=== PATIENT | male | born 1960 | race Caucasian/White ===

== ENCOUNTER → 2018-04-18 | Outpatient (CLI) | payer BC ==
[2018-04-18 13:44] LABS: HCT 47.5 % (39.0-53.0); HGB 16.4 gm/dL (13.0-17.5); MCH 30.6 pg (25.0-35.0); MCHC 34.5 g/dL (31.0-37.0); MCV 88.7 fL (80.0-100.0); Mean Platelet Volume 6.7; Platelet Count 155 k/uL (150-450); RBC 5.35 m/uL (4.30-5.90); RDW 13.3 % (11.5-15.5); WBC 6.4 k/uL (3.8-10.6)
[2018-04-18 13:55] LABS: Anion Gap 10 mmol/L; Blood Urea Nitrogen 11 mg/dL (9-20); Carbon Dioxide 28 mmol/L (22-30); Chloride 100 mmol/L (98-107); Potassium 3.8 mmol/L (3.5-5.1); Sodium 138 mmol/L (137-145)
== END ==
LOC: LABPAT 12:54
PROVIDERS: ATTEND Internal Medicine Interventional Cardiology
DX: Z01.812 Encounter for preprocedural laboratory examination (principal); I10 Essential (primary) hypertension; R07.9 Chest pain, unspecified
CPT/HCPCS: 36415; 80051; 82565; 84520; 85027

== ENCOUNTER 2018-04-19 12:07 | Day surgery (SDC) | payer BC ==
[2018-04-18 12:58] VITALS: BMI 33.0
[~2018-04-19 12:07] MED LIST: ALPRAZolam 0.25 MG TAB PO PRN; ALPRAZolam 0.5 MG TAB PO PRN; ASPIRIN 325 MG TAB PO STA; ATORVASTATIN 80 MG TAB PO STA; NITROGLYCERIN SL TABS 0.4 MG TAB SUBLINGUAL PRN; SODIUM CHLORIDE 0.9% 1,000 ML in EMPTY BAG 1 BAG IV ONE
[2018-04-19] MEDS ORDERED: diphenhydrAMINE 50 MG/ML 1 ML VIAL IVP STA (13:30)
[2018-04-19] MEDS: fentaNYL (PF) 50 MCG/ML 2 ML AMP IV ONE ×2 (13:44→14:47)
[2018-04-19] MEDS ORDERED: MIDAZOLAM 2 MG/2 ML VIAL IV ONE (13:44)
[2018-04-19] MEDS ORDERED: diphenhydrAMINE 50 MG/ML 1 ML VIAL IVP ONE (13:45)
[2018-04-19] MEDS ORDERED: methylPREDNISolone SOD SUCCI 125 MG/2 ML VIAL IV ONE (13:45)
[2018-04-19] MEDS ORDERED: LIDOCAINE 1% INJ 10MG/ML (20 ML MDV) SQ ONE (14:15)
[2018-04-19] MEDS ORDERED: HEPARIN SODIUM 1,000 UN/ML (10ML VL) IV ONE (14:16)
[2018-04-19] MEDS ORDERED: VERAPAMIL SYRINGE (5 MG/10 ML) INTRAARTER ONE (14:16)
[2018-04-19] MEDS ORDERED: BIVALIRUDIN 250 MG in SODIUM CHLORIDE 0.9% 50 ML IV ONE ×2 (14:28→15:23)
[2018-04-19] MEDS ORDERED: BIVALIRUDIN BOLUS 250 MG/50 ML IV ONE (14:28)
[2018-04-19] MEDS ORDERED: IOPAMIDOL-370 125ML BTL INJ ONE (14:51)
[2018-04-19] MEDS ORDERED: TICAGRELOR 90 MG TAB PO ONE (14:56)
[2018-04-19] MEDS ORDERED: IOPAMIDOL-370 100ML BTL INJ ONE ×2 (16:16)
[2018-04-19] MEDS ORDERED: ZOLPIDEM 5 MG TAB PO PRN (16:39)
[2018-04-19] MEDS ORDERED: RX INFO: IV CONTRAST WAS GIVEN 1 EACH MISC MISCELLANE PRN (16:39)
[2018-04-19] MEDS ORDERED: NITROGLYCERIN SL TABS 0.4 MG TAB SUBLINGUAL PRN (16:39)
[2018-04-19] MEDS ORDERED: ATROPINE SULFATE 0.1 MG/ML 10ML SYRINGE IV PRN (16:39)
[2018-04-19] MEDS ORDERED: MAG HYDROX/AL HYDROX/SIMETH 30 ML CUP PO PRN (16:39)
[2018-04-19] MEDS ORDERED: SODIUM CHLORIDE 0.9% 1,000 ML IV SCH (16:45)
[2018-04-19] MEDS ORDERED: LEVOTHYROXINE 88 MCG TAB PO SCH (21:00)
--- NOTE | 2018-04-19 21:02 | LTR ---
DATE OF SERVICE: April 19, 2018. Dear Dr. Scott: Mr. Arnaldo Pineda underwent heart catheterization and was found to have critical disease involving the mid LAD. As well as he was found to have severe disease involving the proximal LAD. He underwent successful stenting of both the mid and distal LAD using drug-eluting stent with good angiographic results and without any complication. I want to thank you for allowing us to participate in his care and please do not hesitate to call if you have any question or concern. Sincerely, MMDIONIL / IJN: [id number] /
--- NOTE | 2018-04-19 21:23 | CC ---
CARDIAC CATHETERIZATION REPORT DATE OF SERVICE: April 19, 2018 PERFORMING PHYSICIAN: Deion Colindres MD, marketing director assisted living. PROCEDURE PERFORMED: 1. Selective right and left coronary angiogram. 2. Left heart catheterization. 3. Successful stenting of the mid LAD using 2.0 x 26 mm Loomis drug-eluting stent which was post dilated using 2.5 mm balloon with an excellent angiographic results and reduction of stenosis from 99% to 0%. 4. Successful stenting of the proximal left anterior descending artery using 2.75 x 23 mm Xience drug-eluting stent with an excellent angiographic results and reduction of stenosis from 70% to 0%. INDICATIONS: This is a pleasant 57-year-old gentleman with hypertension and dyslipidemia who I saw in the office yesterday complaining of chest discomfort concerning for angina. He was having very mild chest discomfort sometimes with the resting. I was concerned about severe underlying coronary artery disease and because of that, I recommended proceeding with a heart catheterization. APPROACH: Right radial artery. COMPLICATION: None. LEVEL OF SEDATION: Moderate with sedation length of 2 hours and 8 minutes. PROCEDURE DESCRIPTION: After obtaining an informed consent, the patient was brought to the cardiac wastewater analyst lab analyst. The right radial artery was cannulated using micropuncture technique and a micropuncture wire passed easily. Then I placed a 6-Bengali sheath 11 cm in the right radial artery. After that, I gave the patient 2 mg of verapamil IA and 8000 units of heparin IV. Subsequently, I did selective right and left coronary angiogram using JR4 and JL 3.5 catheters. Left heart catheterization was performed using 6-Bengali pigtail catheter. After that I did intervene on the LAD. Please see a separate paragraph for that. SELECTIVE CORONARY ANGIOGRAM: 1. The right coronary artery is a large caliber vessel. It is a dominant vessel. The RCA has mild disease only. Distally bifurcates into PDA and PLV branches and they have mild disease only. 2. The left main is angiographically normal. It bifurcates into left circumflex and left anterior descending artery. 3. The left circumflex is a large caliber vessel. It is a nondominant vessel. The proximal circ is normal and gives rise into a large OM branch which appeared to be angiographically normal. Left circumflex after that continues as a small-caliber vessel in the AV groove. 4. The LAD: The proximal LAD in the beginning appeared to have intermediate disease only in the range of 50-60 percent. Then I did realize during the procedure that the LAD tighter than that. The mid LAD is subtotally occluded with a sluggish flow and sometimes dye staining with an area of disease appeared to be in the range of 99.9%. This is by the bifurcation of the 1st large diagonal branch which appeared to be involved in the lesion. The LAD distally appeared to be angiographically normal. HEMODYNAMICS: The left ventricular end-diastolic pressure was about 12 mmHg and no gradient was identified across aortic valve. PCI OF THE LAD: Anticoagulation was initiated using Angiomax. Subsequently I did engage the left main using JL3.5 guiding catheter. After that, I did wire the LAD using a Whisper wire. The wire was positioned in the distal LAD. I did balloon angioplasty of the LAD using 2.5 x 15 mm balloon. Subsequently I tried to advance 2.75 x 23 mm Xience drug-eluting stent to the LAD but I struggled advancing the stent in the proximal LAD. I tried to advance Brendan 2.0 x 26 mm stent and I was unable. I did use a shorter stent of Brendan and I was unable as well. At that point, I tried using a GuideLiner and in spite of that I was able to get the stent to the mid LAD. At that point, I realized that the LAD in the proximal portion tighter than what it looks like and probably about 70% disease. I decided to balloon that LAD in the mid and the proximal portion, so initially I used 2.5 x 15 mm NC balloon and subsequently 3.0 X 15 mm NC balloon. The 2nd balloon which was 3.0 X 15 used to wire the LAD in the proximal as well as midportion. I attempted using the GuideLiner again to advance the stent and I was unable to advance the Loomis stent to the mid LAD. After that, I decided to use a neil wire with another whisper wire. So I did wire the LAD using another whisper wire and the wire was positioned in the very distal end of the LAD. After that I was able to get the Brendan 2.0 x 26 mm to the mid LAD where the stent was positioned under fluoroscopy guidance and deployed under 16 atmospheres for 20 seconds. After that, for the proximal LAD, I did stent using 2.75 x 23 mm Xience drug-eluting stent. The second stent was again positioned under fluoroscopy guidance and deployed under 12 atmospheres for 20 seconds. After that, I did post dilate the stent in the mid LAD using 2.5 mm NC balloon which was inflated twice in the mid LAD inside the stent. Then at the junction between the stent in the mid and proximal portion. The balloon was inflated under 18 atmospheres for 20 seconds. Please note that after I did wire the LAD and ballooned the LAD in the beginning, I did wire the diagonal and also I did balloon angioplasty of the diagonal as well. The final angiogram showed good angiographic results with EZEQUIEL -3 flow in the LAD and maybe EZEQUIEL 2 flow in the diagonal branch of the LAD. Finally, the procedure was completed. POSTPROCEDURE MANAGEMENT: 1. Dual anti-platelet therapy. 2. Risk factors modifications. 3. Follow up with the patient. ALIDA / JAMEL: [id number] /
[2018-04-19 21:56] VITALS: RESP 18
[2018-04-20 03:38] VITALS: BP 97/53; PULSE 69; TEMP 97.5
[2018-04-20 06:51] LABS: Basophils % (A) 0 %; Eosinophils % (A) 0 %; HCT 37.9 % (39.0-53.0); Lymphocytes # (A) 0.5 k/uL (1.0-4.8); Lymphocytes % (A) 6 %; MCH 30.5 pg (25.0-35.0); MCHC 34.5 g/dL (31.0-37.0); MCV 88.3 fL (80.0-100.0); Mean Platelet Volume 7.2; Monocytes # (A) 0.3 k/uL (0-1.0); Monocytes % (A) 3 %; Neutrophils # (A) 8.3 k/uL (1.3-7.7); Neutrophils % (A) 90 %; Platelet Count 110 k/uL (150-450); RDW 13.1 % (11.5-15.5); WBC 9.1 k/uL (3.8-10.6)
[2018-04-20 06:52] LABS: HGB 13.1 gm/dL (13.0-17.5)
[2018-04-20 06:54] LABS: Anion Gap 9 mmol/L; Blood Urea Nitrogen 16 mg/dL (9-20); Calcium 8.7 mg/dL (8.4-10.2); Carbon Dioxide 24 mmol/L (22-30); Chloride 98 mmol/L (98-107); Glucose 154 mg/dL (74-99); Potassium 3.9 mmol/L (3.5-5.1); Sodium 131 mmol/L (137-145)
--- NOTE | 2018-04-20 07:51 | DS ---
DISCHARGE SUMMARY DATE OF ADMISSION: April 19, 2018 DATE OF DISCHARGE: April 20, 2018 BRIEF HISTORY: This is a pleasant 57-year-old gentleman with hypertension and dyslipidemia who was experiencing chest discomfort concerning for angina and underwent yesterday heart catheterization where he was found to have critical mid LAD disease. He underwent successful stenting of the proximal and mid LAD with very complex and extensive procedure lasted about 2.5 hours. By the end, we got good angiographic results with EZEQUIEL-3 flow in the LAD and there was a pinch on a medium-sized diagonal branch coming from the mid LAD. On follow up with the patient today, he denies having any chest pain or chest discomfort or shortness of breath. He has been up and around. The right radial site is looking good as well. The patient is going to be discharged home on dual anti-platelet therapy and I will follow up with the patient in the office next week. The patient was informed multiple times and stressed about the importance of sticking to dual anti-platelet therapy as well as the rest of his medications. MMBYRON / DONALDN: [id number] /
[2018-04-20] MEDS ORDERED: HYDROCHLOROTHIAZIDE 12.5 MG CAP PO SCH (09:00)
[2018-04-20] MEDS ORDERED: ISOSORBIDE MONONITRATE ER 30 MG TAB.ER.24H PO SCH (09:00)
[2018-04-20] MEDS ORDERED: TICAGRELOR 90 MG TAB PO SCH (09:00)
[2018-04-20] MEDS ORDERED: ASPIRIN 81 MG PO SCH (09:00)
[2018-04-20] MEDS ORDERED: MULTIVITAMINS, THERA 1 EACH TAB PO SCH (12:00)
[2018-04-20] MEDS ORDERED: ATORVASTATIN 40 MG TAB PO SCH (21:00)
== END 2018-04-20 08:59 | disposition home or self-care (01) ==
LOC: CATHCVL 12:07 → 3SCARD 16:25 → CATHCVL 04-20 08:59
PROVIDERS: ATTEND Internal Medicine Interventional Cardiology
DX: I10 Essential (primary) hypertension (principal); E78.5 Hyperlipidemia, unspecified; I25.110 Atherosclerotic heart disease of native coronary artery with unstable angina pectoris; Z82.49 Family history of ischemic heart disease and other diseases of the circulatory system; Z79.82 Long term (current) use of aspirin; Z79.890 Hormone replacement therapy; Z79.899 Other long term (current) drug therapy; Z91.013 Allergy to seafood
CPT/HCPCS: 93005; 93458; 80048; 85025; C9600; C1769 ×5; C1887 ×2; C1725 ×4; C1894; C1874 ×2; J2250; J1200; J2930; J2001; J3010; J1644; J0583; Q9967 ×2

== ENCOUNTER → 2019-06-13 | Outpatient (CLI) | payer BC ==
--- NOTE | 2019-06-13 12:13 | US ---
EXAMINATION TYPE: US liver DATE OF EXAM: 06/13/2019 COMPARISON: NONE CLINICAL HISTORY: E80.6 Other disorders of bilirubin metabolism. Abnormal labs. Limited due to body h abitus and over lying bowel gas. Had to scan intercoastally. EXAM MEASUREMENTS: Liver Length: 16.5 cm Gallbladder Wall: .2 cm CBD: .3 cm Right Kidney: 11.8 x 6.1 x 4.7 cm Pancreas: Obscured by bowel gas Liver: Limited due to ribs and bowel gas. Gallbladder: No stones seen Evidence for sonographic Joyner's sign: No CBD: wnl Right Kidney: wnl IMPRESSION: Exam is somewhat limited due to bowel gas. Visualized portions of liver unremarkable. No sonographic evidence of cholelithiasis nor acute cholecystitis.
== END | disposition home or self-care (01) ==
LOC: RADUSWWP 11:00
PROVIDERS: ATTEND Family Medicine
DX: E80.6 Other disorders of bilirubin metabolism (principal)
CPT/HCPCS: 76705

== ENCOUNTER → 2019-09-02 | Outpatient (CLI) | payer BC ==
--- NOTE | 2019-09-03 08:43 | MR ---
EXAMINATION TYPE: MR liver wo/w con DATE OF EXAM: 09/02/2019 COMPARISON: Liver ultrasound June 13, 2019. HISTORY: Hyperbilirubinemia CONTRAST: Standard multiplanar, multisequence MRI departmental protocol utilizing 10 mL intravenous Gadavist ga dolinium contrast. Imaging was performed of the abdomen focusing on the liver. FINDINGS: Slightly suboptimal study as there is motion artifact along diaphragm, patient unable to ho ld breath for ideal imaging. Liver: Liver is overall normal in size. Mild signal dropout diffusely consistent with mild diffuse fa tty infiltration. In the periphery of the right hepatic dome posterior segment there is a slightly lo bulated 1.5 cm lesion of T1 hypointensity and T2 hyperintensity with thin rim enhancement. Some thin septa noted on coronal image 26. Findings consistent with thin-walled septated cyst. There is patent and nondilated main portal vein. There are patent hepatic veins draining into IVC. Gallbladder is wit hin normal limits. No suspicious biliary dilatation seen. Other: Lung bases are grossly clear. Spleen measures upper limits of normal in size. Pancreas and bot h adrenal glands are within normal limits. No concerning renal mass or hydronephrosis seen bilaterall y. No suspicious small or large bowel dilatation. Visualized osseous structures grossly intact. No ab dominal ascites. No greater than 1 cm abdominal adenopathy. IMPRESSION: Normal-sized liver with incidental 1.5 cm benign thin-walled septated cyst. Mild diffuse fatty infiltration felt present. No concerning solid mass or suspicious biliary dilatation.
== END | disposition home or self-care (01) ==
LOC: RADMRIMAIN 15:12
PROVIDERS: ATTEND Internal Medicine Gastroenterology
DX: E80.6 Other disorders of bilirubin metabolism (principal); R93.2 Abnormal findings on diagnostic imaging of liver and biliary tract
CPT/HCPCS: 74183; A9585

== ENCOUNTER → 2019-12-03 | Outpatient (CLI) | payer BC ==
--- NOTE | 2019-12-03 10:38 | MR ---
EXAMINATION TYPE: MR shoulder RT wo con DATE OF EXAM: 12/03/2019 COMPARISON: 11/04/2019 HISTORY: Rt shoulder pain TECHNIQUE: Multiplanar, multisequence imaging of the right shoulder is performed without contrast. FINDINGS: There is arthropathy of the AC joint with impingement of the rotator cuff. There is fluid i n the subacromial subdeltoid bursa. There is thickening and scuffing along the bursal surface of the supraspinatus tendon. Small glenohumeral joint effusion. Glenohumeral ligaments are intact. There is a small amount of flui d surrounding the bicipital tendon. The bicipital tendon remains within the bicipital groove. A cysti c change involving the humeral head likely related to chronic impingement. Abnormal signal seen in the anterior superior labrum extending posteriorly compatible with a SLAP tea r. IMPRESSION: 1. SLAP tear 2. Impingement with tendinosis of the supraspinatus and infraspinatus tendons but no evidence of thro ugh thickness tear or retraction. Bursal scuffing of the distal margin of the supraspinatus tendon.
== END | disposition home or self-care (01) ==
LOC: RADMRIMAIN 09:02
PROVIDERS: ATTEND Orthopaedic Surgery
DX: S43.431A Superior glenoid labrum lesion of right shoulder, initial encounter (principal)

== ENCOUNTER → 2020-03-25 | Outpatient (CLI) | payer BC ==
[2020-03-25 13:56] LABS: Basophils % (A) 1 %; Eosinophils # (A) 0.3 k/uL (0-0.7); Eosinophils % (A) 7 %; HCT 43.2 % (39.0-53.0); HGB 15.1 gm/dL (13.0-17.5); Lymphocytes # (A) 0.9 k/uL (1.0-4.8); Lymphocytes % (A) 19 %; MCH 31.6 pg (25.0-35.0); MCHC 34.9 g/dL (31.0-37.0); MCV 90.7 fL (80.0-100.0); Mean Platelet Volume 7.1; Monocytes # (A) 0.3 k/uL (0-1.0); Monocytes % (A) 6 %; Neutrophils % (A) 66 %; Platelet Count 120 k/uL (150-450); RBC 4.76 m/uL (4.30-5.90); RDW 12.8 % (11.5-15.5); WBC 4.5 k/uL (3.8-10.6)
== END | disposition home or self-care (01) ==
LOC: LABPAT 13:02
PROVIDERS: ATTEND Orthopaedic Surgery
DX: Z01.818 Encounter for other preprocedural examination (principal); M75.41 Impingement syndrome of right shoulder
CPT/HCPCS: 36415; 80051; 85025; 93005

== ENCOUNTER 2020-04-01 11:03 | Day surgery (SDC) | payer BC ==
[2020-03-31 09:42] VITALS: BMI 30.5
--- NOTE | 2020-03-31 15:21 | HP ---
HISTORY AND PHYSICAL DATE OF SURGERY: 04/01/2020. Acosta Pineda is a 59-year-old gentleman seen with progressive right shoulder pain. We discussed options for treatment. He elected to proceed with arthroscopy. Consent regarding the procedure was obtained. PAST MEDICAL HISTORY: Hypothyroidism, hyperlipidemia, hypertension. PAST SURGICAL HISTORY: Bilateral knee arthroscopy, cardiac catheterization with stent insertion. DAILY MEDICATIONS: Aspirin, atorvastatin, levothyroxine. ALLERGIES: None. SOCIAL HISTORY: He denies tobacco use. PHYSICAL EVALUATION OF THE RIGHT SHOULDER: Flexion 150, abduction 130, external rotation is 40 with weakness, tenderness along the anterior lateral acromion rotator cuff insertion site. Impingement is positive 80. Distal neurovascular exam is intact. RADIOGRAPHS: Right shoulder type 2 acromion, acromioclavicular joint osteoarthritis, cyst changes tuberosity. Right shoulder MRI, labral tear, impingement, partial rotator cuff tear. IMPRESSION: 1. Right shoulder impingement with rotator cuff tear. 2. Right shoulder labral tear. 3. Right shoulder acromioclavicular joint osteoarthritis. 4. Hyperlipidemia. 5. Hypothyroidism. PLAN: Right shoulder arthroscopy with subacromial decompression, arthroscopic rotator cuff repair, Piyush procedure, labral repair, reverses debridement. MMODL / IJN: [id number] /
[~2020-04-01 11:03] MED LIST changes: -ALPRAZolam 0.25 MG TAB PO PRN; -ALPRAZolam 0.5 MG TAB PO PRN; -ASPIRIN 325 MG TAB PO STA; -ATORVASTATIN 80 MG TAB PO STA; +DEXAMETHASONE SOD PHOSPHATE 4 MG/ML 1 ML VIAL IV ONE; +HYDROmorphone 0.5 MG/0.5 ML SYRINGE IVP PRN; +LACTATED RINGERS 1,000 ML IV SCH; +LIDOCAINE 1% (10MG/ML) FOR IV START INTRADERMA PRN; +MIDAZOLAM 2 MG/2 ML VIAL IV PRN; -NITROGLYCERIN SL TABS 0.4 MG TAB SUBLINGUAL PRN; +ONDANSETRON 4 MG/2 ML VIAL IVP ONE; -SODIUM CHLORIDE 0.9% 1,000 ML in EMPTY BAG 1 BAG IV ONE
[2020-04-01] MEDS ORDERED: MIDAZOLAM 2 MG/2 ML VIAL IV ONE (12:22)
[2020-04-01] MEDS ORDERED: LIDOCAINE 1% INJ 10MG/ML (20 ML MDV) ONE (13:19)
[2020-04-01] MEDS ORDERED: PROPOFOL 10 MG/ML 20 ML VIAL IV ONE (13:19)
[2020-04-01] MEDS ORDERED: DEXAMETHASONE SOD PHOSPHATE 4 MG/ML 1 ML VIAL ONE (13:19)
[2020-04-01] MEDS ORDERED: fentaNYL (PF) 50 MCG/ML 2 ML AMP ONE (13:19)
[2020-04-01] MEDS ORDERED: ROPIVACAINE 5 MG/ML 30 ML VIAL ONE (13:19)
[2020-04-01] MEDS ORDERED: MIDAZOLAM 2 MG/2 ML VIAL ONE (13:19)
[2020-04-01] MEDS ORDERED: SUCCINYLCHOLINE CHLORIDE 100 MG/5 ML SYR IV ONE (13:19)
--- NOTE | 2020-04-01 14:42 | P.OP ---
Date of Procedure: 04/01/20 Preoperative Diagnosis: Right shoulder impingement Postoperative Diagnosis: 1. Right shoulder impingement 2. Right shoulder acromioclavicular joint osteoarthritis 3. Right shoulder partial long head biceps tendon tear 4. 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 Right shoulder arthroscopic subacromial decompression 2. Right shoulder arthroscopic Piyush procedure 3. Right shoulder arthroscopic biceps tenotomy Anesthesia: GETA, regional (Interscalene block) Surgeon: Nas Godinez Estimated Blood Loss (ml): 8 Pathology: none sent Condition: stable Disposition: PACU Indications for Procedure: 59-year-old patient seen with progressive right shoulder pain. After treatment options were discussed, he elected to proceed with arthroscopy. Operative Findings: see description of procedure Description of Procedure: Patient underwent an interscalene block by department of anesthesia. The patient was then taken to the operative suite. The patient underwent a general anesthetic by the department of anesthesia. The patient was placed into a lateral position and secured. There was appropriate padding of the bony prominence. Right shoulder was then prepped and draped in normal sterile orthopedic fashion. We placed the extremity in 10 pounds of longitudinal traction. A posterior incision was now made for a posterior working portal site. The trocar and cannula were inserted into the glenohumeral joint. Arthroscopy was initiated. Spinal needle was now inserted anteriorly, to ascertain the anterior working portal site. An incision was now made in that area, a trocar was inserted followed by a probe. The labrum revealed some mild superficial fraying anteriorly. There was no tear. There were grade 2 chondromalacia changes of the glenohumeral joint. There were some partial tearing and hyperemia long head biceps tendon. I performed an arthroscopic biceps tenotomy. I debrided that superficial fraying. The residual labrum was probed and found to be stable. Instruments were now removed from glenohumeral joint. Utilizing the posterior working portal site, the trocar and cannula were inserted into the subacromial space. Arthroscopy initiated. I made an incision 2 fingerbreadths lateral to the acromion. I introduced my trocar followed by my ArthroCare ablator. I now began ablating thick subacromial bursal tissue, which exposed the undersurface of the anterior acromion. There was diminished subacromial space. There was a very prominent anterior acromion. A motorized bur was introduced and a subacromial decompression was performed. I also excised some osteophytes off the inferior aspect of the distal clavicle. The AC joint was visualized and noted to be fairly arthritic. The motorized bur was introduced in the anterior portal site and a Piyush procedure was performed without difficulty, decompressing the AC joint nicely. I turned my attention to the rotator cuff. There was some fraying along the distal supraspinatus. I debrided that area. I probed the area and found no tear or perforation present. Instruments now removed from the portal sites. All portal sites were approximated with nylon suture. Sterile dressings were applied followed by a shoulder sling. The patient was awakened, transferred to a bed, and taken to recovery in stable condition.
[2020-04-01 14:48] VITALS: TEMP 96.9
[2020-04-01 17:01] VITALS: BP 146/87; PULSE 67; RESP 18
--- NOTE | 2020-04-02 13:15 | P.ANPRN ---
Procedure Note - Anesthesia - Nerve Block Performed Right Interscalene Single Time Out Performed: Yes Date of Procedure: 04/01/20 Procedure Start Time: : Procedure Stop Time: Location of Patient: PreOp Indication: Acute Post-Operative Pain, Requested by Surgeon Sedation Type: Sedate with meaningful contact maintained Preparation: Sterile Prep Position: Supine Needle Types: Pajunk Needle Gauge: 21 Ultrasound used to visualize needle placement: Yes Ultrasound used to observe medication spread: Yes Blood Aspirated: No Pain Paresthesia on Injection Noted: No Resistance on Injection: Normal Image Stored and Saved: Yes Events: Uneventful and Well Tolerated (ropi .5% 20cc plus dexamethasone 4mg)
== END 2020-04-01 17:05 | disposition home or self-care (01) ==
LOC: OR 11:03
PROVIDERS: ATTEND Orthopaedic Surgery
DX: M25.811 Other specified joint disorders, right shoulder (principal); M19.011 Primary osteoarthritis, right shoulder; M66.821 Spontaneous rupture of other tendons, right upper arm; M94.211 Chondromalacia, right shoulder; M25.711 Osteophyte, right shoulder; E03.9 Hypothyroidism, unspecified; E78.5 Hyperlipidemia, unspecified; I10 Essential (primary) hypertension; I25.10 Atherosclerotic heart disease of native coronary artery without angina pectoris; Z98.890 Other specified postprocedural states; Z95.5 Presence of coronary angioplasty implant and graft; Z79.82 Long term (current) use of aspirin; Z79.899 Other long term (current) drug therapy; Z79.890 Hormone replacement therapy; Z91.013 Allergy to seafood
CPT/HCPCS: 64415; 76942; 29824; 29826; J2250; J1100; J0690; J2405; J2001; J3010; J2795; J0330; J2704

== ENCOUNTER → 2020-11-30 | Outpatient (CLI) | payer BC ==
--- NOTE | 2020-11-30 08:32 | US ---
EXAMINATION TYPE: US liver DATE OF EXAM: 11/30/2020 COMPARISON: MR 2020, US 2020 CLINICAL HISTORY: R17 JAUNDICE. abnormal labs EXAM MEASUREMENTS: Liver Length: 14.8 cm Gallbladder Wall: 0.3 cm Right Kidney: 10.1 x 5.1 x 6.0 cm Extremely limited exam due to overlying bowel gas Pancreas: Obscured by bowel gas Liver: Scanned through ribs due to bowel gas. Right dome lesion seen on MR 2020 not visualized but could be due to suboptimal scan with intercostal scanning Gallbladder: limited visualization, could not seen GB entirely Evidence for sonographic Joyner's sign: neg CBD: Obscured by overlying bowel gas Right Kidney: No hydronephrosis or masses seen Suboptimal study. Pancreas not well-visualized on initial images. Visualized liver remains heterogene ously hyperechoic. Evaluation for focal masses suboptimal due to the heterogeneity. Gallbladder somew hat contracted not well seen on images saved. Wall thickness upper limits of normal. No right-sided h ydronephrosis. No obvious intrahepatic biliary dilatation, common bile duct not well seen. No new asc ites. IMPRESSION: Suboptimal study, consider liver protocol contrast-enhanced CT or MRI/MRCP follow-up to [facility] evaluate.
== END | disposition home or self-care (01) ==
LOC: RADUSWWP 07:02
PROVIDERS: ATTEND Family Medicine
DX: R17 Unspecified jaundice (principal)
CPT/HCPCS: 76705

== ENCOUNTER → 2021-09-21 | Outpatient (CLI) | payer BC | END | disposition home or self-care (01) | LOC: LABPAT 15:11 | PROVIDERS: ATTEND Orthopaedic Surgery | DX: Z01.812 Encounter for preprocedural laboratory examination (principal); Z22.322 Carrier or suspected carrier of Methicillin resistant Staphylococcus aureus; M17.12 Unilateral primary osteoarthritis, left knee | CPT/HCPCS: 87070 ==

== ENCOUNTER 2021-10-03 05:57 | Day surgery (SDC) | payer BC ==
--- NOTE | 2021-10-02 12:22 | HP ---
HISTORY AND PHYSICAL REASON FOR ADMISSION: Surgery scheduled for 10/03/2021. HISTORY OF PRESENT ILLNESS: Arnaldo Pineda is a 60-year-old patient seen with symptomatic left knee osteoarthritis. We discussed options for treatment. He elected to proceed with left total knee arthroplasty. Consent was obtained. PAST MEDICAL HISTORY: Hypertension, hypothyroidism, cardiovascular disease. PAST SURGICAL HISTORY: Knee arthroscopy, right shoulder arthroscopy, cardiac catheterization with stent insertion. DAILY MEDICATIONS: Aspirin, atorvastatin, levothyroxine. ALLERGIES: None. SOCIAL HISTORY: He denies tobacco use. PHYSICAL EVALUATION OF THE LEFT KNEE: Range of motion -3 to 115. Mild effusion. Tenderness medial joint line. Positive medial Reginald's. Ligaments stable. Hip rotation without pain. Distal neurovascular exam is intact. RADIOGRAPHS: Radiographs of the left knee revealed severe osteoarthritic changes. IMPRESSION: 1. Left knee osteoarthritis. 2. Hypertension. 3. Hyperlipidemia. 4. Cardiovascular disease. PLAN: Left total knee arthroplasty. Surgery scheduled for . MMODL / IJN: [id number] /
[~2021-10-03 05:57] MED LIST changes: +ACETAMINOPHEN TAB 500 MG TAB PO PRN; -DEXAMETHASONE SOD PHOSPHATE 4 MG/ML 1 ML VIAL IV ONE; -HYDROmorphone 0.5 MG/0.5 ML SYRINGE IVP PRN; -LACTATED RINGERS 1,000 ML IV SCH; -LIDOCAINE 1% (10MG/ML) FOR IV START INTRADERMA PRN; +MELOXICAM 7.5 MG TAB PO PRN; -MIDAZOLAM 2 MG/2 ML VIAL IV PRN; -ONDANSETRON 4 MG/2 ML VIAL IVP ONE; +TRANEXAMIC ACID IN NACL,ISO-OS 1,000 MG in SALINE 1 100ML.BAG IVPB PRN
[2021-10-03] MEDS ORDERED: SCOPOLAMINE 1 MG/72 HR PATCH TRANSDERM ONE (06:08)
[2021-10-03] MEDS ORDERED: MIDAZOLAM 2 MG/2 ML VIAL IV PRN (06:08)
[2021-10-03] MEDS ORDERED: ONDANSETRON 4 MG/2 ML VIAL IVP ONE ×2 (06:08→10:50)
[2021-10-03] MEDS ORDERED: DEXAMETHASONE SOD PHOSPHATE 4 MG/ML 1 ML VIAL IV ONE (06:08)
[2021-10-03 06:32] VITALS: TEMP 97
[2021-10-03] MEDS: LACTATED RINGERS 1,000 ML IV SCH ×2 (06:40→06:45)
[2021-10-03] MEDS ORDERED: LIDOCAINE 1% (10MG/ML) FOR IV START INTRADERMA ONE ×2 (06:40→06:45)
[2021-10-03 07:13] LABS: INR 0.9 (<1.2)
[2021-10-03] MEDS ORDERED: ROPIVACAINE 5 MG/ML 30 ML VIAL ONE (07:34)
[2021-10-03] MEDS ORDERED: LIDOCAINE 2% INJ 20 MG/ML (2 ML VIAL) ONE (07:34)
[2021-10-03] MEDS ORDERED: HYDROmorphone (PF) 1 MG/ML ONE (07:34)
[2021-10-03] MEDS ORDERED: fentaNYL (PF) 50 MCG/ML 2 ML AMP ONE (07:34)
[2021-10-03] MEDS ORDERED: PROPOFOL 10 MG/ML 20 ML VIAL IV ONE (07:34)
[2021-10-03] MEDS ORDERED: DEXAMETHASONE SOD PHOSPHATE 4 MG/ML 1 ML VIAL ONE (07:34)
[2021-10-03] MEDS ORDERED: SUCCINYLCHOLINE CHLORIDE 100 MG/5 ML SYR IV ONE (07:34)
[2021-10-03] MEDS ORDERED: TRANEXAMIC ACID IN NACL,ISO-OS 1,000 MG/100 ML BAG ONE (07:34)
[2021-10-03] MEDS ORDERED: MIDAZOLAM 2 MG/2 ML VIAL ONE (07:34)
[2021-10-03] MEDS ORDERED: ROPIVACAINE 0.2%-NS ON-Q PUMP 1,090 MG, EMPTY PAIN BALL 1 EACH MISCELLANE PRN (09:00)
--- NOTE | 2021-10-03 09:03 | P.ANPRN ---
Procedure Note - Anesthesia - Nerve Block Performed Left Adductor Canal Infusion Time Out Performed: Yes Date of Procedure: 10/03/21 Procedure Start Time: 07:05 Procedure Stop Time: :15 Location of Patient: PreOp Indication: Acute Post-Operative Pain, Requested by Surgeon Sedation Type: Sedate with meaningful contact maintained Preparation: Sterile Prep, Sterile Dressing Position: Supine Catheter: Indwelling Needle Types: On-Q Needle Gauge: 18 Ultrasound used to visualize needle placement: Yes Ultrasound used to observe medication spread: Yes Injectate: 0.5% Ropivacaine (see comment for volume) (15 ml + decadron 4 mg) Blood Aspirated: No Pain Paresthesia on Injection Noted: No Resistance on Injection: Normal Image Stored and Saved: Yes Events: Uneventful and Well Tolerated Left iPack Single Time Out Performed: Yes Date of Procedure: 10/03/21 Procedure Start Time: :15 Procedure Stop Time: Location of Patient: PreOp Indication: Acute Post-Operative Pain, Requested by Surgeon Sedation Type: Sedate with meaningful contact maintained Preparation: Sterile Prep, Sterile Dressing Position: Right Lateral Catheter: None Needle Types: Facet Needle Gauge: 20 Ultrasound used to visualize needle placement: Yes Ultrasound used to observe medication spread: Yes Injectate: 0.5% Ropivacaine (see comment for volume) (15 ml + decadron 2 mg) Blood Aspirated: No Pain Paresthesia on Injection Noted: No Resistance on Injection: Normal Image Stored and Saved: Yes Events: Uneventful and Well Tolerated
[2021-10-03] MEDS ORDERED: HYDROcodone/APAP 7.5-325MG 1 EACH TAB PO PRN (09:17)
[2021-10-03] MEDS ORDERED: ONDANSETRON 4 MG/2 ML VIAL IVP PRN (09:17)
[2021-10-03] MEDS ORDERED: HYDROcodone/APAP 5-325MG 1 EACH TAB PO PRN (09:17)
[2021-10-03] MEDS ORDERED: LACTATED RINGERS 1,000 ML IV ONE ×2 (09:17→10:20)
[2021-10-03] MEDS ORDERED: HYDROmorphone 1 MG/ML 1 ML SYRINGE IVP PRN (09:17)
[2021-10-03] MEDS ORDERED: HYDROmorphone 0.5 MG/0.5 ML SYRINGE IVP PRN ×2 (09:17)
[2021-10-03] MEDS ORDERED: NALOXONE 0.4 MG/ML 1 ML VIAL IV PRN (09:17)
--- NOTE | 2021-10-03 09:17 | P.OP ---
Date of Procedure: 10/03/21 Preoperative Diagnosis: Left knee osteoarthritis Postoperative Diagnosis: Left knee osteoarthritis Procedure(s) Performed: Left total knee arthroplasty Implants: 1. Depuy attune size 7 cruciate retaining cemented femur 2. Depuy attune size 7 fixed-bearing cemented tibial baseplate 3. Depuy attune size 7 fixed-bearing cruciate retaining 8 mm polyethylene tibial insert 4. Depuy attune 38 mm all polyethylene cemented patella Anesthesia: GETA, regional (Adductor canal catheter, Ipack block) Surgeon: Nas Godinez Deputy Jailer #1: Alvarado Santo Estimated Blood Loss (ml): 45 Pathology: other (Bone) Condition: stable Disposition: PACU Indications for Procedure: 60-year-old patient seen with symptomatic left knee osteoarthritis. After treatment options were discussed, he elected to proceed with total knee arthroplasty. Operative Findings: See description of procedure Description of Procedure: Patient was taken to the operative suite after having an adductor canal catheter placed by the department of anesthesia as well as an Ipack block for postoperative pain management. Patient underwent a general anesthetic by the department of anesthesia. Patient was given preoperative IV intake antibiotics and TXA. A well-padded tourniquet was placed about the [] lower extremity. The lower extremity was then prepped and draped in the normal sterile orthopedic fashion. The extremity was elevated, a tourniquet was insufflated to 300. A standard anterior incision was made sharply through skin. Dissection was taken down through the subcutaneous soft tissues down to the extensor mechanism. A medial arthrotomy was performed, patella was everted and knee was flexed. There was advanced osteoarthritis noted. I introduced my distal intramedullary femoral drill. I then introduced the distal femoral cutting jig. Morris FOX secured the cutting jig with 2 pins. I held retractors in position while Morris FOX performed the distal femoral resection through the guide area we now removed her distal femoral cutting guide. We now placed our 4-in-1 femoral cutting block and positioned and it was secured with 2 pins by Morris FOX while I held the block in position. The distal femoral finishing was now completed. A proximal tibial cutting guide was positioned. I held the guide in the appropriate position with both hands well Morris FOX inserted stabilizing pins into the guide. Proximal tibial cut was made. We now placed a trial femoral component into position, along with an appropriate size tibial tray and insert. We now took the knee through range of motion and had full extension good flexion and good overall soft tissue balance noted. The patella was everted and stabilized with 2 towel clips held by Morris FOX while I per formed a flush with patellar quad tendon utilizing a fresh sawblade. We templated the patella, appropriate drill holes were made. An appropriate trial patella was positioned, knee was taken through full range of motion with the patella tracking very nicely. The trial patella was removed. Drill holes were made through the femoral component. All trial components were removed after marking off the appropriate rotation of the tibia. Retractors were now positioned along the proximal tibia. An appropriate keel punch was made with the appropriate size tibial guide by myself on Morris FOX assisted by holding retractors. At this point appropriate size implants were chosen and opened. The joint was irrigated copiously with pulse lavage mechanical irrigation. The posterior capsule was infiltrated with local analgesic. The wound was irrigated with pulse lavage mechanical irrigation. We mixed antibiotic methylmethacrylate. We placed the knee into flexion. We placed multiple retractors assisted by Morris FOX to expose the proximal tibia. Once the methyl methacrylate was ready, the tibial component was cemented into place removing any excess methylmethacrylate form by both myself and Morris FOX. The femoral component was cemented into place removing the removing any excess methylmethacrylate performed by both myself and Morris FOX. We then inserted the appropriate size polyethylene tibial insert. We made sure that it was locked into position. We took the knee into full extension, and then back in a flexion making sure we had removed any excess methylmethacrylate. The patellar component was then cemented down and secured with clamp. Excess methylmethacrylate removed. We kept the knee in full extension, patellar clamp in position until methylmethacrylate had hardened. Once it had hardened the patellar clamp was removed. The knee was taken through full range of motion. The patella tracked nicely. There was good soft tissue balancing. The travis rniquet was now released. Additional hemostasis was achieved via electrocautery. A second gram of TXA was given. The wound again was irrigated with pulse lavage mechanical irrigation. The superficial soft tissues were infiltrated local analgesic. The extensor mechanism was repaired with Ethibond. We checked the repair with range of motion and it was stable. The subcutaneous soft tissues were repaired with Vicryl in layers. The skin was approximated with pernio/Dermabond. Sterile dressings were applied followed by loose web roll and Carlos A bandage. The patient was transferred to a bed, and taken to recovery in stable and satisfactory condition. Morris FOX assisted with this complex procedure.
[2021-10-03] MEDS: HYDROmorphone 0.5 MG/0.5 ML SYRINGE IVP PRN ×4 (09:49→10:53)
[2021-10-03] MEDS ORDERED: KETOROLAC 15 MG/ML 1 ML VIAL IVP ONE (10:05)
--- NOTE | 2021-10-03 10:22 | XR ---
EXAMINATION TYPE: XR knee limited LT DATE OF EXAM: 10/03/2021 COMPARISON: None HISTORY: Postop evaluation TECHNIQUE: 2 view left knee FINDINGS: Tibial and femoral components are present. No acute fractures are evident. Postsurgical sof t tissue changes are evident. IMPRESSION: 1. No acute fracture post left knee replacement.
[2021-10-03 14:40] VITALS: RESP 15
[2021-10-03 15:22] VITALS: BP 130/68; PULSE 75
== END 2021-10-03 15:30 | disposition home health service (06) ==
LOC: OR 05:57
PROVIDERS: ATTEND Orthopaedic Surgery
DX: M17.12 Unilateral primary osteoarthritis, left knee (principal); G89.18 Other acute postprocedural pain
CPT/HCPCS: 27447; 97110; 97161; 64999; 64448; 76942; 85610; 88300; 73560; C1776; C1713 ×2; J2250; J1100; J0690; J2405; J3010; J1170 ×2; J2795 ×2; J1885; J0330; J2704; J1790; J2001

== ENCOUNTER → 2024-03-07 | Outpatient (CLI) | payer BC ==
[2024-03-07 20:11] LABS: Basophils # (A) 0.04 X 10*3/uL (0.00-0.10); Basophils % (A) 0.8 %; Eosinophils # (A) 0.22 X 10*3/uL (0.04-0.35); Eosinophils % (A) 4.2 %; HCT 46.8 % (39.6-50.0); Lymphocytes # (A) 1.04 X 10*3/uL (0.90-5.00); Lymphocytes % (A) 19.6 %; MCH 31.1 pg (27.0-32.0); MCHC 34.2 g/dL (32.0-37.0); MCV 91.1 FL (80.0-97.0); Mean Platelet Volume 10.2 FL (9.5-12.2); Monocytes # (A) 0.41 X 10*3/uL (0.20-1.00); Monocytes % (A) 7.7 %; NRBC Per 100 WBC 0 X 10*3/uL (0.00-0.01); Neutrophils # (A) 3.57 X 10*3/uL (1.80-7.70); Neutrophils % (A) 67.3 %; Platelet Count 141 X 10*3/uL (140-440); RBC 5.14 X 10*6/uL (4.40-5.60); RDW 13.1 % (11.5-14.5)
[2024-03-07 20:23] LABS: ALT 29 U/L (10-49); AST 33 U/L (14-35); Albumin 4.6 g/dL (3.8-4.9); Albumin/Globulin Ratio 1.92 Ratio (1.60-3.17); Alkaline Phosphatase 94 U/L (41-126); Blood Urea Nitrogen 7.7 mg/dL (9.0-27.0); Calcium 9.5 mg/dL (8.7-10.3); Chloride 99 mmol/L (96-109); Globulin 2.4 g/dL (1.6-3.3); Glucose 95 mg/dL (70-110); Sodium 139 mmol/L (135-145); Total Bilirubin 2.3 mg/dL (0.3-1.2)
== END | disposition home or self-care (01) ==
LOC: LABWHC1 13:08
PROVIDERS: ATTEND Internal Medicine Gastroenterology
DX: E80.6 Other disorders of bilirubin metabolism (principal)
CPT/HCPCS: 36415; 80053; 81596; 85025

== ENCOUNTER → 2024-07-14 | Day surgery (SDC) | payer BC ==
[~2024-07-14] MED LIST changes: -ACETAMINOPHEN TAB 500 MG TAB PO PRN; +ALPRAZolam 0.25 MG TAB PO PRN; +ALPRAZolam 0.5 MG TAB PO PRN; +ASPIRIN 325 MG TAB PO STA; +ATORVASTATIN 80 MG TAB PO STA; +HEPARIN SODIUM,PORCINE (1 ML) 2,500 UNIT in SODIUM CHLORIDE 0.9% 250 ML IRRIGATION PRN; +HEPARIN SODIUM,PORCINE 10,000 UNIT in SODIUM CHLORIDE 0.9% 1,000 ML IRRIGATION PRN; -MELOXICAM 7.5 MG TAB PO PRN; +NITROGLYCERIN SL TABS 0.4 MG TAB SUBLINGUAL PRN; +RX INFO: IV CONTRAST WAS GIVEN 1 EACH MISC MISCELLANE PRN; +SODIUM CHLORIDE 0.9% 1,000 ML IV SCH; -TRANEXAMIC ACID IN NACL,ISO-OS 1,000 MG in SALINE 1 100ML.BAG IVPB PRN
[2024-07-14] MEDS: IV FLUID CONTINUATION 1,000 ML IV ONE (06:15)
[2024-07-14] MEDS: SODIUM CHLORIDE 0.9% 1,000 ML in EMPTY BAG 1 BAG IV SCH (06:15)
[2024-07-14 06:40] LABS: Basophils % (A) 0 %; Eosinophils % (A) 1 %; HCT 42.6 % (39.0-53.0); Lymphocytes # (A) 0.8 k/uL (1.0-4.8); Lymphocytes % (A) 9 %; MCH 30.2 pg (25.0-35.0); MCV 91.6 fL (80.0-100.0); Mean Platelet Volume 7.6; Monocytes # (A) 0.4 k/uL (0-1.0); Monocytes % (A) 4 %; Neutrophils # (A) 7.5 k/uL (1.3-7.7); Neutrophils % (A) 85 %; Platelet Count 164 k/uL (150-450); RBC 4.64 m/uL (4.30-5.90); RDW 13.2 % (11.5-15.5); WBC 8.8 k/uL (3.8-10.6)
[2024-07-14 06:56] VITALS: TEMP 97.6
[2024-07-14] MEDS: HEPARIN SODIUM,PORCINE (1 ML) 2,500 UNIT in SODIUM CHLORIDE 0.9% 250 ML IRRIGATION ONE (07:20)
[2024-07-14] MEDS: HEPARIN SODIUM,PORCINE 10,000 UNIT in SODIUM CHLORIDE 0.9% 1,000 ML IRRIGATION ONE (07:20)
[2024-07-14] MEDS: MIDAZOLAM 2 MG/2 ML VIAL IVP ONE (07:45)
[2024-07-14] MEDS: LIDOCAINE 1% INJ 10MG/ML (20 ML MDV) SQ ONE (07:47)
[2024-07-14] MEDS: VERAPAMIL SYRINGE (5 MG/10 ML) INTRAARTER ONE (07:47)
[2024-07-14] MEDS: fentaNYL (PF) 50 MCG/ML 2 ML AMP IVP ONE (07:49)
[2024-07-14] MEDS: IOPAMIDOL-370 100ML BTL INJ ONE (07:58)
--- NOTE | 2024-07-14 08:06 | P.PCN ---
Date of Procedure: 07/14/24 Operative Findings: CARDIAC CATHETERIZATION PERFORMING PHYSICIAN: Deion Colindres MD, RPVI PROCEDURE PERFORMED: 1. Selective right and left coronary angiogram 2. Left heart catheterization INDICATION: Symptomatic 63-year-old gentleman with abnormal myocardial perfusion imaging stress test and history of CAD with prior stenting of the LAD COMPLICATION: None APPROACH: Right radial artery LEVEL OF SEDATION: Moderate with a sedation length of 13 minutes PROCEDURE DESCRIPTION: After obtaining an informed consent, the patient was brought to cardiac fish farm laborer. Local anesthesia was performed using lidocaine subcutaneously. The right radial artery was cannulated using Seldinger technique, under ultrasound guidance, the guidewire passed easily, following that we advanced a 5-H[place] Konger sheath dilator assembly, the wire and dilator were removed and sheath was flushed. Following that, 2 mg of verapamil along with 5000 unit heparin were given. Selective right and left coronary angiogram using a 5-H[place] Konger JR4 and JL 3.5 catheters. Following that we did left heart catheterization using 5-H[place] Konger pigtail catheter. The procedure was completed there was no complication. SELECTIVE CORONARY ANGIOGRAM: The right coronary artery: Large-caliber vessel and a dominant vessel with mild disease only Left main: Has mild disease The left circumflex: Large caliber vessel nondominant vessel appears to be angiographically normal and gives rise into first OM which works as a ramus intermedius with mild to moderate disease only The left anterior descending artery: Patent stent in the proximal to mid LAD with intermediate lesion appears to be focal involving the mid LAD appears to be in the range of 40% has not changed compared to before but the LAD gives rise into a diagonal branch which jailed by the stent and has an ostial lesion appears to be in the range of 70 to 80% HEMODYNAMICS: The LVEDP was 14 mmHg with no significant gradient across aortic valve CONCLUSION: 1. Patent stent in the proximal and mid LAD with a jailed diagonal branch and also intermediate focal lesion involving the mid LAD appears to be in the range of 50 to 60% 2. Normal left-sided filling pressure POSTPROCEDURE MANAGEMENT: Medical treatment Consider IFR of the LAD if the patient remains symptomatic
[2024-07-14 18:34] VITALS: BP 140/68; PULSE 66; RESP 14
== END ==
LOC: CATHCVL 05:47
PROVIDERS: ATTEND Internal Medicine Interventional Cardiology
DX: I25.10 Atherosclerotic heart disease of native coronary artery without angina pectoris (principal); E66.3 Overweight; I10 Essential (primary) hypertension; E78.5 Hyperlipidemia, unspecified; Z95.5 Presence of coronary angioplasty implant and graft; Z91.013 Allergy to seafood; Z88.8 Allergy status to other drugs, medicaments and biological substances; Z79.82 Long term (current) use of aspirin; Z79.899 Other long term (current) drug therapy
CPT/HCPCS: 93458; 85025; 99152; C1894; C1887; J2250; J1644 ×3; J2003; J3010; Q9967